=== PATIENT | male | born 1945 | race Caucasian/White ===

== ENCOUNTER 2023-06-26 10:50 | Outpatient (RCR) | payer OTHER, SELFPAY | END 2023-07-21 23:59 | disposition home or self-care (01) | LOC: SST 10:50 | PROVIDERS: Visit Provider Emergency Medicine Emergency Medical Services | DX: R13.10 Dysphagia, unspecified (principal); R49.8 Other voice and resonance disorders | CPT/HCPCS: 92507; 92524; 92526; 92610 ==

== ENCOUNTER 2023-07-22 06:00 | Outpatient (RCR) | payer OTHER, SELFPAY | END 2023-08-21 23:59 | disposition home or self-care (01) | LOC: SST 06:00 | PROVIDERS: PCP Emergency Medicine Emergency Medical Services; Visit Provider Emergency Medicine Emergency Medical Services | DX: R13.10 Dysphagia, unspecified (principal); R49.8 Other voice and resonance disorders | CPT/HCPCS: 92507; 92526 ==

== ENCOUNTER 2023-08-22 06:00 | Outpatient (RCR) | payer OTHER, SELFPAY | END 2023-09-20 23:59 | disposition home or self-care (01) | LOC: SST 06:00 | PROVIDERS: PCP Emergency Medicine Emergency Medical Services; Visit Provider Emergency Medicine Emergency Medical Services | DX: R13.10 Dysphagia, unspecified (principal); R49.8 Other voice and resonance disorders | CPT/HCPCS: 92507 ==